=== PATIENT | male | born 1980 | race Caucasian/White ===

== ENCOUNTER 2018-01-27 22:41 | Emergency (ER) | payer OTHER, MEDICAID ==
[~2018-01-27] VITALS: Ht 162.6 cm; Wt 71.7 kg
[~2018-01-27 22:41] MED LIST: ACETAMINOPHEN-1 EAC1 PO; DOXYCYCLINE 10100 MG PO; NOHOMEMEDICATIONS; NORCO 5-325 TA1 EAC1 PO; NORCO 5-325 TA1 EACH PO; PENICILLIN V P500 MG PO; PENICILLIN VK250 MG PO; PENICILLIN VK500 M1 PO
[2018-01-27] MEDS ORDERED: [UNRECOGNIZED DRUG - OTHER] TOP (22:59)
[2018-01-27] MEDS ORDERED: CHANTIX1 MG PO (23:00)
[2018-01-27] MEDS ORDERED: VENTOLIN HFA 1818 GM INH (23:58)
[2018-01-27] MEDS ORDERED: DOXYCYCLINE 10100 MG PO (23:58)
[2018-01-28 00:08] VITALS: BP 122/74
== END 2018-01-28 00:08 | disposition home or self-care (01) ==
LOC: M.ERS 22:41
DX: J06.9 Acute upper respiratory infection, unspecified (principal); F17.210 Nicotine dependence, cigarettes, uncomplicated